=== PATIENT | female | born 1990 | race Caucasian/White ===

== ENCOUNTER 2017-11-22 20:52 | Emergency (ER) | payer SELFPAY ==
[2017-11-22] MEDS ORDERED: ALBUTEROL 90 MCG/ACT 8GM HFA INHALER INH (22:15)
[2017-11-22] MEDS: AZITHROMYCIN 250 MG TAB PO (22:21)
[2017-11-22] MEDS: ALBUTEROL 90 MCG/ACT 8GM HFA INHALER INH (22:21)
== END 2017-11-22 22:25 | disposition home or self-care (01) ==
LOC: M ED 20:52
DX: J40 Bronchitis, not specified as acute or chronic (principal); J01.90 Acute sinusitis, unspecified; F17.210 Nicotine dependence, cigarettes, uncomplicated
CPT/HCPCS: 99283

== ENCOUNTER 2018-01-18 10:09 | Emergency (ER) | payer MEDICAID, SELFPAY ==
[2018-01-18 10:32] LABS: CONTROL LINE UCG INT CTR LINE PRESENT; URINE PREG TEST NEGATIVE (NEGATIVE)
[2018-01-18 10:38] LABS: AMORPHOUS SEDIMENT RFX SMALL (NEGATIVE); KETONE, URINE AUTO RFX TRACE mg/dL (NEGATIVE); MUCUS, URINE RFX SMALL (NEGATIVE); NITRITE, URINE AUTO RFX NEGATIVE (NEGATIVE); RBC, URINE AUTO RFX 2 /HPF (0-3); SPECIFIC GRAVITY UR AUTO RFX 1.019 (1.002-1.035); SQUAM EPITHELIAL CELL UR AURFX 14 /HPF (0-6); WBC, URINE AUTO RFX 1 /HPF (0-3)
[2018-01-18 10:40] LABS: LEUKOCYTE ESTERASE UR AUTO RFX TRACE (NEGATIVE)
[2018-01-18] MEDS: KETOROLAC 30 MG/ML VIAL (J1885) IV ×2 (11:17)
[2018-01-18] MEDS: NS 1,000 ML IV ×2 (11:17)
[2018-01-18 11:23] LABS: BASO % 0.1 % (0.0-1.0); EOS # 0.2 10^3/uL (0.0-0.50); EOS % 1.8 % (0.0-3.0); HEMATOCRIT 46.8 % (36.0-47.0); HEMOGLOBIN 15.5 g/dl (12.0-15.5); IMMATURE GRANULOCYTE % 0.2 % (0-3.0); LYMPH # 3.8 10^3/uL (1.5-6.5); LYMPH % 36.1 % (24.0-44.0); MEAN CORPUSCULAR HEMOGLOBIN 28.7 pg (27.0-33.0); MEAN CORPUSCULAR HGB CONC 33.1 g/dl (32.0-36.5); MEAN CORPUSCULAR VOLUME 86.7 fl (80.0-96.0); MONO % 9.2 % (0.0-5.0); NEUTROPHILS # 5.5 10^3/uL (1.8-7.7); NEUTROPHILS % 52.6 % (36.0-66.0); PLATELET COUNT, AUTOMATED 360 10^3/uL (150-450); RED CELL DISTRIBUTION WIDTH 15.1 % (11.5-14.5); WHITE BLOOD COUNT 10.4 10^3/uL (4.0-10.0)
[2018-01-18 11:56] LABS: ALBUMIN 3.6 GM/DL (3.2-5.2); ALKALINE PHOSPHATASE 119 U/L (45-117); ALT/SGPT 426 U/L (12-78); AMYLASE 60 U/L (25-115); ANION GAP 10 MEQ/L (8-16); AST/SGOT 213 U/L (7-37); BILIRUBIN,DIRECT 0.1 MG/DL (0.0-0.2); BILIRUBIN,TOTAL 0.4 MG/DL (0.2-1.0); BLOOD UREA NITROGEN 5 MG/DL (7-18); CALCIUM LEVEL 8.8 MG/DL (8.5-10.1); CARBON DIOXIDE LEVEL 22 MEQ/L (21-32); CHLORIDE LEVEL 108 MEQ/L (98-107); CREATININE FOR GFR 0.74 MG/DL (0.55-1.30); GLOMERULAR FILTRATION RATE > 60.0 (>60); GLUCOSE, FASTING 92 MG/DL (70-100); LIPASE 83 U/L (73-393); POTASSIUM SERUM 4.7 MEQ/L (3.5-5.1); SODIUM LEVEL 140 MEQ/L (136-145); TOTAL PROTEIN 7.2 GM/DL (6.4-8.2)
[2018-01-18] MEDS ORDERED: ONDANSETRON 4MG/2ML VIAL (J2405) As Ordered ×2 (12:07)
[2018-01-18] MEDS ORDERED: MORPHINE 4 MG/ML 1ML VIAL/SYRINGE (J2270) As Ordered ×2 (12:07)
[2018-01-18] MEDS: MORPHINE 4 MG/ML 1ML VIAL/SYRINGE (J2270) IV ×2 (12:12)
[2018-01-18] MEDS: ONDANSETRON 4MG/2ML VIAL (J2405) IV ×2 (12:13)
[2018-01-19 10:49] LABS: HEPATITIS B SURFACE ANTIGEN NEGATIVE (NEGATIVE)
[2018-01-19 11:08] LABS: HEPATITIS B CORE ANTIBODY IGM NEGATIVE (NEGATIVE)
[2018-01-19 11:18] LABS: HEPATITIS A ANTIBODY IGM NEGATIVE (NEGATIVE)
[2018-01-19 14:01] LABS: HEPATITIS C VIRUS ABY INDEX > 11.0 INDEX (<0.8)
[2018-01-22 08:06] LABS: HCV RNA NAA QUALITATIVE Positive (Negative)
== END 2018-01-18 13:30 | disposition home or self-care (01) ==
LOC: M ED 10:09
DX: K43.9 Ventral hernia without obstruction or gangrene (principal); B17.9 Acute viral hepatitis, unspecified; K76.0 Fatty (change of) liver, not elsewhere classified; Z88.1 Allergy status to other antibiotic agents; Z88.2 Allergy status to sulfonamides; F17.210 Nicotine dependence, cigarettes, uncomplicated
CPT/HCPCS: J2270

== ENCOUNTER 2018-06-23 15:10 | Emergency (ER) | payer MEDICAID, OTHER ==
[~2018-06-23] VITALS: Ht 162.6 cm; Wt 59.1 kg
[2018-06-23 15:10] VITALS: BP 110/63
[~2018-06-23 15:10] MED LIST: CLAR5TAB7 PO; IBUP-1114 PO; IBUP80TA PO; ZITHTAB PO; ZOFR4TAB14 PO
[2018-06-23] MEDS ORDERED: CLINDAMYCIN 150 MG CAP PO ONE (16:00)
[2018-06-23] MEDS ORDERED: MAGICMW SSP (16:00)
[2018-06-23] MEDS ORDERED: CLIN150C14 PO (16:00)
== END 2018-06-23 16:14 | disposition home or self-care (01) ==
LOC: M ED 15:10
DX: K04.7 Periapical abscess without sinus (principal); S02.5XXA Fracture of tooth (traumatic), initial encounter for closed fracture; X58.XXXA Exposure to other specified factors, initial encounter; Y92.89 Other specified places as the place of occurrence of the external cause; F17.200 Nicotine dependence, unspecified, uncomplicated; Z88.2 Allergy status to sulfonamides

== ENCOUNTER 2018-11-28 17:30 | Emergency (ER) | payer OTHER ==
[~2018-11-28] VITALS: Ht 162.6 cm; Wt 58.9 kg
[2018-11-28 17:30] VITALS: BP 130/69
[~2018-11-28 17:30] MED LIST changes: +CLIN150C14 PO; +MAGICMW SSP
[2018-11-28] MEDS ORDERED: MACR100C43 PO (18:09)
[2018-11-28] MEDS ORDERED: PYRI1TAB5 PO (18:09)
[2018-11-28] MEDS ORDERED: PHENAZOPYRIDINE 100 MG TAB PO ONE (18:15)
[2018-11-28] MEDS ORDERED: NITROFURANTOIN (MACROBID) 100 MG CAP PO ONE (18:15)
== END 2018-11-28 18:21 | disposition home or self-care (01) ==
LOC: M ED 17:30
DX: N39.0 Urinary tract infection, site not specified (principal); Z88.2 Allergy status to sulfonamides; J45.909 Unspecified asthma, uncomplicated; Z90.49 Acquired absence of other specified parts of digestive tract; F17.200 Nicotine dependence, unspecified, uncomplicated

== ENCOUNTER → 2019-11-09 | Outpatient (REF) | payer OTHER ==
[~2019-11-09] MED LIST changes: +ACET-861 PO; +AUGM875T28 PO; +MACR100C43 PO; +NORC1TAB7 PO; +PREN200C PO; +PROAAER10 INH; +PYRI1TAB5 PO
[2019-11-09 14:22] LABS: BASO % 0.3 % (0.0-1.0); EOS # 0.1 10^3/uL (0.0-0.5); EOS % 1.8 % (0.0-3.0); HEMATOCRIT 44.3 % (36.0-47.0); HEMOGLOBIN 15.6 g/dl (12.0-15.5); LYMPH # 2.9 10^3/uL (1.5-5.0); MEAN CORPUSCULAR HEMOGLOBIN 32.4 pg (27.0-33.0); MEAN CORPUSCULAR HGB CONC 35.2 g/dl (32.0-36.5); MEAN CORPUSCULAR VOLUME 92.1 fl (80.0-96.0); MONO # 0.7 10^3/uL (0.0-0.8); MONO % 9.5 % (0.0-5.0); NEUTROPHILS # 3.3 10^3/uL (1.5-8.5); NEUTROPHILS % 47.3 % (36.0-66.0); PLATELET COUNT, AUTOMATED 244 10^3/uL (150-450); RED BLOOD COUNT 4.81 10^6/uL (4.00-5.40); WHITE BLOOD COUNT 7.1 10^3/uL (4.0-10.0)
[2019-11-09 14:39] LABS: ALT/SGPT 19 U/L (12-78); BILIRUBIN,TOTAL 0.4 MG/DL (0.2-1.0); BLOOD UREA NITROGEN 10 MG/DL (7-18); CALCIUM LEVEL 8.7 MG/DL (8.5-10.1); CARBON DIOXIDE LEVEL 25 MEQ/L (21-32); CHLORIDE LEVEL 105 MEQ/L (98-107); CHOLESTEROL LEVEL 190 MG/DL (<200); CHOLESTEROL RISK RATIO 2.405 (<5); FREE T4 1.04 NG/DL (0.76-1.46); GLOMERULAR FILTRATION RATE > 60.0 (>60); GLUCOSE, FASTING 76 MG/DL (70-100); HDL CHOLESTEROL 79 MG/DL (>40); LDL CHOLESTEROL 89 MG/DL (<100); NON-HDL-C 111 MG/DL; POTASSIUM SERUM 4.7 MEQ/L (3.5-5.1); SODIUM LEVEL 135 MEQ/L (136-145); TOTAL 25(OH) VITAMIN D 38.3 NG/ML (30.0-100.0); TOTAL PROTEIN 7.4 GM/DL (6.4-8.2); TRIGLYCERIDES LEVEL 112 MG/DL (<150)
[2019-11-09 15:15] LABS: HIV 1&2 SCREEN CENTAUR NEGATIVE (NEGATIVE)
[2019-11-09 15:28] LABS: HEPATITIS C VIRUS ABY INDEX > 11.0 INDEX (<0.8)
== END ==
LOC: M LAB REF 11:38
PROVIDERS: ATTEND Physician Assistant
DX: Z13.228 Encounter for screening for other metabolic disorders (principal); Z13.220 Encounter for screening for lipoid disorders; Z11.4 Encounter for screening for human immunodeficiency virus [HIV]; B18.2 Chronic viral hepatitis C; Z00.01 Encounter for general adult medical examination with abnormal findings; Z31.41 Encounter for fertility testing; F17.200 Nicotine dependence, unspecified, uncomplicated; K42.0 Umbilical hernia with obstruction, without gangrene; J45.20 Mild intermittent asthma, uncomplicated; Z68.23 Body mass index [BMI] 23.0-23.9, adult

== ENCOUNTER 2019-12-02 12:57 | Emergency (ER) | payer OTHER ==
[~2019-12-02] VITALS: Ht 165.1 cm; Wt 63.3 kg
[~2019-12-02 12:57] MED LIST changes: -ACET-861 PO; -AUGM875T28 PO; -NORC1TAB7 PO; -PREN200C PO; -PROAAER10 INH
[2019-12-02] MEDS ORDERED: ACET-861 PO (13:05)
[2019-12-02] MEDS ORDERED: AUGM875T28 PO (14:19)
[2019-12-02] MEDS ORDERED: NORC1TAB7 PO (14:19)
[2019-12-02 14:28] VITALS: BP 129/81
[2020-01-10] MEDS ORDERED: PREN200C PO (11:55)
[2020-01-10] MEDS ORDERED: PROAAER10 INH (12:04)
== END 2019-12-02 14:29 | disposition home or self-care (01) ==
LOC: M ED 12:57
DX: K04.7 Periapical abscess without sinus (principal); Z88.1 Allergy status to other antibiotic agents

== ENCOUNTER → 2019-12-10 | Outpatient (REF) | payer OTHER ==
[~2019-12-10] MED LIST changes: +ACET-861 PO; +AUGM875T28 PO; +NORC1TAB7 PO
[2019-12-14 11:09] LABS: HEPATITIS C QUANTITATION HCV Not Detected IU/mL (.)
== END ==
LOC: M LAB REF 16:54
PROVIDERS: ATTEND Nurse Practitioner Adult Health
DX: B18.2 Chronic viral hepatitis C (principal)

== ENCOUNTER → 2020-01-16 | Outpatient (CLI) | payer OTHER ==
[~2020-01-16] MED LIST changes: +PREN200C PO; +PROAAER10 INH
== END ==
LOC: M LABSMTC 08:05
PROVIDERS: ATTEND Anesthesiology
DX: Z01.812 Encounter for preprocedural laboratory examination (principal); Z20.828 Contact with and (suspected) exposure to other viral communicable diseases
CPT/HCPCS: C9803; U0003

== ENCOUNTER 2020-01-21 06:10 | Day surgery (SDC) | payer OTHER ==
[~2020-01-21] VITALS: Ht 162.6 cm; Wt 62.6 kg
[2020-01-21] MEDS ORDERED: ceFAZolin SOD 2 GM in IV 1 EA IV ONE (07:00)
[2020-01-21] MEDS ORDERED: LR 1,000 ML IV ONE (07:00)
[2020-01-21] MEDS ORDERED: LIDOCAINE W/EPINEPHRINE 1% 20ML VIAL As Ordered ONE (07:09)
[2020-01-21] MEDS ORDERED: BUPIVACAINE HCL 0.25% 30ML VIAL As Ordered ONE (07:09)
[2020-01-21] MEDS ORDERED: MIDAZOLAM INJ 2MG/2ML VIAL (J2250 PER 1MG) As Ordered ONE (07:21)
[2020-01-21] MEDS ORDERED: HYDROmorphone HCL 2 MG/ML 1ML VIAL (J1170) As Ordered ONE (07:21)
[2020-01-21] MEDS ORDERED: ONDANSETRON 4MG/2ML VIAL As Ordered ONE (07:22)
[2020-01-21] MEDS ORDERED: KETOROLAC 60MG 2ML VIAL As Ordered ONE (07:22)
[2020-01-21] MEDS ORDERED: propofoL 200 MG/20 ML VIAL As Ordered ONE ×2 (07:22→08:00)
[2020-01-21] MEDS ORDERED: ROCURONIUM BROMIDE 50 MG/5 ML VIAL As Ordered ONE ×2 (07:22→08:29)
[2020-01-21] MEDS ORDERED: LIDOCAINE 2% 100MG/5ML SDV (FOR ANES.) As Ordered ONE (07:22)
[2020-01-21] MEDS ORDERED: dexameTHASONE 4 MG/ML 1ML VIAL (J1100 PER 1MG) As Ordered ONE (07:22)
[2020-01-21] MEDS ORDERED: fentaNYL 100 MCG/2 ML INJECTION (J3010) As Ordered ONE ×3 (07:22→09:09)
[2020-01-21] MEDS ORDERED: ALBUTEROL 6.7GM INHALER **FOR ANES. CART/OMNICELL ONLY As Ordered ONE (08:01)
[2020-01-21] MEDS ORDERED: ACETAMINOPHEN 1000MG 100ML IV BTL (OFIRMEV) (J0131 PER 10MG) As Ordered ONE (08:04)
[2020-01-21] MEDS ORDERED: NEOSTIGMINE 10MG/10ML VIAL (J2710 PER 0.5MG) As Ordered ONE (08:07)
[2020-01-21] MEDS ORDERED: GLYCOPYRROLATE INJ 0.2 MG/ML 2 ML VIAL As Ordered ONE (08:07)
[2020-01-21] MEDS ORDERED: SUGAMMADEX SODIUM 500 MG/5 ML VIAL (BRIDION) As Ordered ONE (08:08)
[2020-01-21] MEDS: fentaNYL 100 MCG/2 ML INJECTION (J3010) IV PRN ×3 (09:10→09:38)
[2020-01-21] MEDS ORDERED: NORCO, ANEXSIA 5/325MG TABLET (HYDROcodone/ACETAMINOPHEN) PO PRN (09:30)
[2020-01-21] MEDS ORDERED: LR 1,000 ML IV SCH (09:30)
[2020-01-21] MEDS ORDERED: ONDANSETRON 4MG/2ML VIAL IV PRN (09:30)
[2020-01-21] MEDS: oxyCODONE 5MG TAB PO PRN ×2 (09:30→10:32)
[2020-01-21 09:50] VITALS: BP 134/64
--- NOTE | 2020-01-24 07:02 | RO ---
DATE OF OPERATION: 01/21/2020 PREOPERATIVE DIAGNOSIS: Incarcerated incisional hernia. POSTOPERATIVE DIAGNOSIS: Incarcerated incisional hernia. PROCEDURE: Robotic repair of incarcerated incisional hernia. SURGEON: Allan Limon DO VIROLOGIST: None. ANESTHESIA: General. EBL: 5. COMPLICATIONS: None. INDICATIONS FOR PROCEDURE: The patient is a 29-year-old female who presents with periumbilical lump status post previous laparoscopic surgery. She was identified to have an incarcerated incisional hernia. Recommendation was to proceed with robotic repair. Risks and benefits of the procedure not limited to but including bleeding, infection, hernia formation, hernia recurrence, damage to surrounding structures, need for further surgery were discussed in detail with the patient and informed consent was obtained and procedure was planned. PROCEDURE: The patient was brought back to operating room 7. After sufficient sedation the abdomen was sterilely prepped and draped. Next, time out was done to confirm proper patient, proper procedure. Following that 8 mm incision was made in left upper quadrant, Veress needle was inserted and the abdomen was insufflated with 15 mmHg. Veress needle was then removed and 8 mm Optiview port was used to gain access to the abdomen. Once the abdomen was entered two more ports were placed, one subxiphoid just left of the midline and one in the right upper quadrant. The hernia was identified; preperitoneal space was then opened with horizontal incision through the peritoneum. The preperitoneal space was then dissected free inferiorly surrounding the hernia sac. The hernia was then completely reduced. Once the hernia was completely reduced the fascial defect was closed with #0 Stratafix suture. Once that was completed a 3 x 4 cm oval- shaped piece of ProGrip mesh was placed over top of the suture line and then the peritoneum was closed over top of the mesh to hold it in place using 2-0 V-Loc. Once that was completed the abdomen was desufflated. Skin incisions were closed with 4-0 Vicryl subcuticular sutures. The abdomen was cleaned and dried. Steri- Strips, 4 x 4 and tape were applied. This ended the procedure. MATTHEW
== END 2020-01-21 10:43 | disposition home or self-care (01) ==
LOC: M SDC 06:10
PROVIDERS: ATTEND Surgery
DX: K43.0 Incisional hernia with obstruction, without gangrene (principal); K57.92 Diverticulitis of intestine, part unspecified, without perforation or abscess without bleeding; J45.909 Unspecified asthma, uncomplicated; Z79.899 Other long term (current) drug therapy; Z88.2 Allergy status to sulfonamides; F17.218 Nicotine dependence, cigarettes, with other nicotine-induced disorders
CPT/HCPCS: 49655; 81025; C1781; J0131; J0690; J1100; J1170; J1885; J2250; J2405; J3010; S2900

== ENCOUNTER → 2020-04-03 | Outpatient (REF) | payer OTHER ==
[~2020-04-03] MED LIST changes: -CLIN150C14 PO; +CLIN150C15 PO
[2020-04-03 16:32] LABS: PROGESTERONE 3.3 NG/ML; THYROID STIMULATING HORMONE 1.52 uIU/ML (0.358-3.740)
[2020-04-03 16:33] LABS: FOLLICLE STIMULATING HORMONE 4.4 mIU/mL; FREE T4 0.91 NG/DL (0.76-1.46); LUTEINIZING HORMONE 14.5 mIU/mL; PROLACTIN 22.8 NG/ML
== END ==
LOC: M PLALAB 14:25
PROVIDERS: ATTEND Specialist
DX: N92.6 Irregular menstruation, unspecified (principal); N97.9 Female infertility, unspecified

== ENCOUNTER 2021-06-07 16:48 | Emergency (ER) | payer OTHER ==
[~2021-06-07] VITALS: Ht 162.6 cm; Wt 62.3 kg
[~2021-06-07 16:48] MED LIST changes: -CLIN150C15 PO; +CLIN150C17 PO
[2021-06-07 16:49] VITALS: BP 137/82
== END 2021-06-07 17:05 | disposition left against medical advice (07) ==
LOC: M ED 16:48
DX: Z53.21 Procedure and treatment not carried out due to patient leaving prior to being seen by health care provider (principal)